=== PATIENT | female | born 1965 | race Caucasian/White ===

== ENCOUNTER 2021-03-18 08:43 | Emergency (ER) | payer SELFPAY ==
[~2021-03-18] VITALS: Ht 177.8 cm; Wt 59.0 kg
[~2021-03-18 08:43] MED LIST: HYDR1TAB94
[2021-03-18] MEDS ORDERED: VENL150ER PO ×2 (08:56→09:17)
[2021-03-18] MEDS ORDERED: GABA100 PO (08:57)
[2021-03-18] MEDS ORDERED: Neurontin 100100 MG PO (09:17)
[2021-03-18] MEDS ORDERED: VENL75ER PO (09:17)
== END 2021-03-18 11:10 | disposition home or self-care (01) ==
LOC: ER 08:43
DX: Z76.0 Encounter for issue of repeat prescription (principal); Z23 Encounter for immunization; Z88.2 Allergy status to sulfonamides; Z88.1 Allergy status to other antibiotic agents; Z79.899 Other long term (current) drug therapy
CPT/HCPCS: 0031A; 91303; 99281-25

== ENCOUNTER 2022-02-17 15:07 | Emergency (ER) | payer SELFPAY ==
[~2022-02-17] VITALS: Ht 177.8 cm; Wt 70.3 kg
[~2022-02-17 15:07] MED LIST changes: +GABA100 PO; +Neurontin 100100 MG PO; +VENL150ER PO; +VENL75ER PO
[2022-02-17 15:36] LABS: BASOPHILS ABSOLUTE AUTO 0.06 K/mm3 (0.00-0.23); BASOPHILS PERCENT AUTO 1 % (0-2); EOSINOPHILS ABSOLUTE AUTO 0.43 K/mm3 (0.00-0.68); EOSINOPHILS PERCENT AUTO 5 % (0-6); Hematocrit 40.5 % (33.0-51.0); IMMATURE GRAN ABSOLUTE AUTO 0.01 K/mm3 (0.00-0.10); IMMATURE GRAN PERCENT AUTO 0 % (0-1); LYMPHOCYTES ABSOLUTE AUTO 2.92 K/mm3 (0.84-5.20); LYMPHOCYTES PERCENT AUTO 34 % (21-46); MONOCYTES PERCENT AUTO 6 % (4-13); Mean Corpuscular HGB Conc 34.6 g/dL (31.5-36.5); Mean Corpuscular Volume 93 fL (80-100); Mean Platelet Volume 10.5 fL (9.1-12.4); NEUTROPHILS ABSOLUTE AUTO 4.56 K/mm3 (1.96-9.15); NEUTROPHILS PERCENT AUTO 54 % (41-73); Platelet Count 317 K/mm3 (150-400); RDW Coefficient Variation 12.2 % (11.7-14.2); RDW Standard Deviation 42.1 fL (35.1-46.3); Red Blood Cell Count 4.37 M/mm3 (3.80-5.20); White Blood Cell Count 8.48 K/mm3 (4.00-11.30)
[2022-02-17 15:57] LABS: Albumin, Blood 4.1 g/dL (3.4-5.0); Albumin/Globulin Ratio 1.2 (0.8-1.8); Bilirubin, Total 0.3 mg/dL (0.1-1.0); Bun/Creatinine Ratio 28.9 (12.0-20.0); Calcium, Blood 9.3 mg/dL (8.5-10.1); Creatinine, Blood 0.55 mg/dL (0.40-1.00); Globulin, Blood 3.5 g/dL (2.2-4.0); Potassium, Blood 3.9 mmol/L (3.5-5.5); Total Protein, Blood 7.6 g/dL (6.4-8.2)
[2022-02-17 16:31] LABS: Influenza A, PCR NEGATIVE (NEGATIVE); Influenza B, PCR NEGATIVE (NEGATIVE); Resp Syncytial Virus, PCR NEGATIVE (NEGATIVE); SARS-Cov-2 (COVID-19) PCR, MMC NEGATIVE (NEGATIVE)
[2022-02-17 16:52] LABS: Source, Urine Clean Catch
[2022-02-17 17:00] LABS: Appearance, Urine Clear (Clear); Bilirubin, Urine Neg (Neg); Blood, Urine 2+ (Neg); Color, Urine Yellow (P-Yellow); Glucose Qualitative, Urine Neg (Neg); Ketones, Urine Neg (Neg); Leukocyte Esterase, Urine 1+ (Neg); Nitrite, Urine Neg (Neg); Protein, Urine Neg (Neg); Specific Gravity, Urine 1.025 (1.003-1.022); Urobilinogen, Urine NORM (Normal)
[2022-02-17 17:17] LABS: Bacteria Mod /hpf; Squamous Epithelial Cells Few /hpf (Few)
[2022-02-17] MEDS ORDERED: HYDR1TAB94 PO (19:11)
== END 2022-02-17 19:44 | disposition home or self-care (01) ==
LOC: ER 15:07
PROVIDERS: Physician Assistant; Student in an Organized Health Care Education/Training Program
DX: R07.81 Pleurodynia (principal); R31.9 Hematuria, unspecified; F17.210 Nicotine dependence, cigarettes, uncomplicated; Z88.1 Allergy status to other antibiotic agents; Z88.2 Allergy status to sulfonamides; Z79.899 Other long term (current) drug therapy; Z20.822 Contact with and (suspected) exposure to COVID-19
CPT/HCPCS: 0241U; 36415; 71045; 74150; 80053; 81001; 83690; 84484; 85025; 85379; 93005; 93010; J1885

== ENCOUNTER → 2023-01-03 | Outpatient (CLI) | payer BC ==
[~2023-01-03] MED LIST changes: +HYDR1TAB94 PO
[2023-01-03 11:42] LABS: Adenovirus F 40/41 Not Detected (NOT DETECT); Astrovirus Not Detected (NOT DETECT); Campylobacter Sp Not Detected (NOT DETECT); Cryptosporidium Not Detected (NOT DETECT); Cyclospora Cayetanensis Not Detected (NOT DETECT); E. Coli O157 Not Detected (NOT DETECT); Entamoeba Histolytica Not Detected (NOT DETECT); Enteroaggregative E. coli-EAEC Not Detected (NOT DETECT); Enteropathogenic E. coli-EPEC Not Detected (NOT DETECT); Enterotoxigenic E. coli-ETEC Not Detected (NOT DETECT); Giardia Lamblia Not Detected (NOT DETECT); Norovirus GI/GII Not Detected (NOT DETECT); Plesiomonas Shigelloides Not Detected (NOT DETECT); Rotavirus A Not Detected (NOT DETECT); Salmonella Sp Not Detected (NOT DETECT); Sapovirus Not Detected (NOT DETECT); Shiga Toxin-prod E. coli-STEC Not Detected (NOT DETECT); Shigella/Enteroin E. coli-EIEC Not Detected (NOT DETECT); Vibrio Cholerae Not Detected (NOT DETECT); Vibrio Sp Not Detected (NOT DETECT); Yersinia Enterocolitica Not Detected (NOT DETECT)
== END | disposition home or self-care (01) ==
LOC: LAB 04:15 → LAB SHORT 04:15 → EDSTATUS 01-02 15:40 → LAB FUT 01-02 15:40
PROVIDERS: Family Medicine
DX: R19.7 Diarrhea, unspecified (principal)
CPT/HCPCS: 87507

== ENCOUNTER 2023-02-01 06:39 | Day surgery (SDC) | payer BC ==
[~2023-02-01] VITALS: Ht 177.8 cm; Wt 69.2 kg
[2023-02-01] MEDS ORDERED: BUSP5 (07:14)
[2023-02-01 09:27] VITALS: BP 130/88
--- NOTE | 2023-02-01 09:29 | NUR ---
[facility]23 [facility]
== END 2023-02-01 09:29 | disposition home or self-care (01) ==
LOC: ORSCSDS 06:39
PROVIDERS: Surgery
PROC: 0DBE8ZX Excision of Large Intestine, Via Natural or Artificial Opening Endoscopic, Diagnostic (ICD-10-PCS; principal; 2023-02-01 08:00)
PROC: 0DBK8ZX Excision of Ascending Colon, Via Natural or Artificial Opening Endoscopic, Diagnostic (ICD-10-PCS; principal; 2023-02-01 08:00)
PROC: 0DBM8ZX Excision of Descending Colon, Via Natural or Artificial Opening Endoscopic, Diagnostic (ICD-10-PCS; principal; 2023-02-01 08:00)
PROC: 0DBP8ZX Excision of Rectum, Via Natural or Artificial Opening Endoscopic, Diagnostic (ICD-10-PCS; principal; 2023-02-01 08:00)
DX: R19.4 Change in bowel habit (principal); R14.0 Abdominal distension (gaseous); R15.9 Full incontinence of feces; R15.2 Fecal urgency; K63.89 Other specified diseases of intestine; D12.2 Benign neoplasm of ascending colon; D12.4 Benign neoplasm of descending colon; K62.1 Rectal polyp; F17.210 Nicotine dependence, cigarettes, uncomplicated; Z79.899 Other long term (current) drug therapy
CPT/HCPCS: 88305; J2001; J2704; J7120

== ENCOUNTER 2023-03-29 06:01 | Day surgery (SDC) | payer BC ==
[2023-03-29] VITALS (16 sets, daily range): BP systolic 101–126; BP diastolic 56–91
[~2023-03-29] VITALS: Ht 175.3 cm; Wt 70.5 kg
[~2023-03-29 06:01] MED LIST changes: +BUSP5 PO
--- NOTE | 2023-03-29 07:05 | NUR ---
Ambulatory in Day Surgery. History, Chart, Medications and Allergies reviewed before start of procedure. Pre-Op teaching done. Pt verbalizes understanding. Patient confirms NPO status and agrees with scheduled surgery. Lungs clear T/O to Auscultation. Patient reports completing Chlorhexadine shower X2 prior to admission to hospital. Patient States Post-Procedure ride home has been arranged.
[2023-03-29 12:18] LABS: BASOPHILS ABSOLUTE AUTO 0.04 K/mm3 (0.00-0.23); BASOPHILS PERCENT AUTO 1 % (0-2); EOSINOPHILS ABSOLUTE AUTO 0.04 K/mm3 (0.00-0.68); EOSINOPHILS PERCENT AUTO 1 % (0-6); Hematocrit 39.8 % (33.0-51.0); Hemoglobin 13.3 g/dL (11.5-16.0); IMMATURE GRAN ABSOLUTE AUTO 0.02 K/mm3 (0.00-0.10); IMMATURE GRAN PERCENT AUTO 0 % (0-1); LYMPHOCYTES ABSOLUTE AUTO 0.71 K/mm3 (0.84-5.20); LYMPHOCYTES PERCENT AUTO 10 % (21-46); MONOCYTES ABSOLUTE AUTO 0.11 K/mm3 (0.16-1.47); MONOCYTES PERCENT AUTO 2 % (4-13); Mean Corpuscular HGB 31.8 pg (26.0-34.0); Mean Corpuscular HGB Conc 33.4 g/dL (31.5-36.5); Mean Corpuscular Volume 95 fL (80-100); NEUTROPHILS ABSOLUTE AUTO 6.54 K/mm3 (1.96-9.15); NEUTROPHILS PERCENT AUTO 88 % (41-73); Platelet Count 284 K/mm3 (150-400); RDW Coefficient Variation 12.5 % (11.7-14.2); RDW Standard Deviation 43.8 fL (35.1-46.3); Red Blood Cell Count 4.18 M/mm3 (3.80-5.20); White Blood Cell Count 7.46 K/mm3 (4.00-11.30)
[2023-03-29] MEDS ORDERED: IBUP800 PO (14:26)
[2023-03-29] MEDS ORDERED: Norco 5-325 Ta1 EACH PO (14:26)
--- NOTE | 2023-03-29 14:58 | NUR ---
DISCHARGE EATING, DRINKING, VOIDING EASILY. VAG PACKING REMOVED. PT's PAIN IS TOLERABLE. ESCORTED OUT IA WC. SCRIPT GIVEN.
== END 2023-03-29 14:57 | disposition home or self-care (01) ==
LOC: ORSCMMR 06:01 → ORD 08:00 → SURS 10:00 → ORSCMMR 14:57
PROVIDERS: Obstetrics & Gynecology
PROC: 0JQC0ZZ Repair Pelvic Region Subcutaneous Tissue and Fascia, Open Approach (ICD-10-PCS; principal; 2023-03-29 08:00)
DX: N81.2 Incomplete uterovaginal prolapse (principal); F41.9 Anxiety disorder, unspecified; F32.A Depression, unspecified; Z79.899 Other long term (current) drug therapy; Z87.891 Personal history of nicotine dependence
CPT/HCPCS: 36415; 85025; A9270; J1100; J1885; J2250; J2405; J2704; J3010; J7120

== ENCOUNTER 2023-06-18 17:59 | Emergency (ER) | payer BC ==
[~2023-06-18] VITALS: Ht 175.3 cm; Wt 68.0 kg
[~2023-06-18 17:59] MED LIST changes: +IBUP800 PO; +Norco 5-325 Ta1 EACH PO
[2023-06-18 18:24] VITALS: BP 138/94
[2023-06-18 19:20] LABS: Influenza A, PCR NEGATIVE (NEGATIVE); Influenza B, PCR NEGATIVE (NEGATIVE); Resp Syncytial Virus, PCR NEGATIVE (NEGATIVE); SARS-Cov-2 (COVID-19) PCR, MMC NEGATIVE (NEGATIVE)
== END 2023-06-18 22:02 | disposition home or self-care (01) ==
LOC: ER 17:59
PROVIDERS: Physician Assistant
DX: R50.9 Fever, unspecified (principal); F17.210 Nicotine dependence, cigarettes, uncomplicated; Z88.2 Allergy status to sulfonamides; Z88.1 Allergy status to other antibiotic agents; Z88.8 Allergy status to other drugs, medicaments and biological substances; Z79.899 Other long term (current) drug therapy; Z20.822 Contact with and (suspected) exposure to COVID-19
CPT/HCPCS: 0241U; 96372; 99283-25; A9270; J1885

== ENCOUNTER → 2023-06-20 | Outpatient (CLI) | payer BC | LOC: LAB 15:20 → LAB SHORT 15:20 | DX: R82.90 Unspecified abnormal findings in urine (principal) | CPT/HCPCS: 87086 ==

== ENCOUNTER 2024-02-15 12:40 | Day surgery (SDC) | payer BC ==
[~2024-02-15] VITALS: Ht 175.3 cm; Wt 71.9 kg
[~2024-02-15 12:40] MED LIST changes: +Atropine Sulfate 0.1 MG/ML 10ML SYR ONE; +Glycopyrrolate 0.2 MG/ML 1MLVIAL ONE; +Lactated Ringer's 1,000 ML IV ONE; +Lidocaine 2% 5 ML SDV ONE; +Lidocaine HCl/Pf 1% 5 ML VIAL ONE; +Methylene Blue 1% 100 MG/10 ML VIAL ONE; +Ondansetron HCl 2 MG / ML 2ML Vial ONE; +ePHEDrine Sulfate 50 MG/ML 1ML Injection ONE; +propofoL 50 ML IV ONE
[2024-02-15] MEDS ORDERED: Lactated Ringer's 1,000 ML IV ONE (14:18)
[2024-02-15 15:44] VITALS: BP 136/96
== END 2024-02-15 15:52 | disposition home or self-care (01) ==
LOC: ORSCSDS 12:40
DX: R13.10 Dysphagia, unspecified (principal); K29.70 Gastritis, unspecified, without bleeding; K21.9 Gastro-esophageal reflux disease without esophagitis; F41.9 Anxiety disorder, unspecified; Z79.899 Other long term (current) drug therapy; F17.210 Nicotine dependence, cigarettes, uncomplicated
CPT/HCPCS: 88305; 88342; J0461; J2001; J2405; J2704; J7120; Q9968

== ENCOUNTER 2024-04-25 17:45 | Emergency (ER) | payer BC ==
[~2024-04-25] VITALS: Ht 177.8 cm; Wt 72.6 kg
[~2024-04-25 17:45] MED LIST changes: -Atropine Sulfate 0.1 MG/ML 10ML SYR ONE; -Glycopyrrolate 0.2 MG/ML 1MLVIAL ONE; -Lactated Ringer's 1,000 ML IV ONE; -Lidocaine 2% 5 ML SDV ONE; -Lidocaine HCl/Pf 1% 5 ML VIAL ONE; -Methylene Blue 1% 100 MG/10 ML VIAL ONE; -Ondansetron HCl 2 MG / ML 2ML Vial ONE; -ePHEDrine Sulfate 50 MG/ML 1ML Injection ONE; -propofoL 50 ML IV ONE
[2024-04-25 18:20] LABS: BASOPHILS ABSOLUTE AUTO 0.05 K/mm3 (0.00-0.23); BASOPHILS PERCENT AUTO 1 % (0-2); EOSINOPHILS PERCENT AUTO 4 % (0-6); Hematocrit 37.7 % (33.0-51.0); Hemoglobin 13.1 g/dL (11.5-16.0); IMMATURE GRAN ABSOLUTE AUTO 0.01 K/mm3 (0.00-0.10); IMMATURE GRAN PERCENT AUTO 0 % (0-1); LYMPHOCYTES ABSOLUTE AUTO 2.84 K/mm3 (0.84-5.20); LYMPHOCYTES PERCENT AUTO 41 % (21-46); MONOCYTES ABSOLUTE AUTO 0.47 K/mm3 (0.16-1.47); MONOCYTES PERCENT AUTO 7 % (4-13); Mean Corpuscular HGB 32.4 pg (26.0-34.0); Mean Corpuscular HGB Conc 34.7 g/dL (31.5-36.5); Mean Corpuscular Volume 93 fL (80-100); Mean Platelet Volume 9.7 fL (9.1-12.4); NEUTROPHILS ABSOLUTE AUTO 3.24 K/mm3 (1.96-9.15); NEUTROPHILS PERCENT AUTO 47 % (41-73); Platelet Count 339 K/mm3 (150-400); RDW Coefficient Variation 12.5 % (11.7-14.2); RDW Standard Deviation 43.3 fL (35.1-46.3); Red Blood Cell Count 4.04 M/mm3 (3.80-5.20); White Blood Cell Count 6.91 K/mm3 (4.00-11.30)
[2024-04-25] MEDS ORDERED: LOSA50 PO (18:45)
[2024-04-25] MEDS ORDERED: CYCLOBENZAPRINE 5 MG (18:46)
[2024-04-25 18:48] LABS: Albumin, Blood 3.8 g/dL (3.4-5.0); Albumin/Globulin Ratio 1.2 (0.8-1.8); Bilirubin, Total 0.2 mg/dL (0.1-1.0); Bun/Creatinine Ratio 24.4 (12.0-20.0); Calcium, Blood 8.8 mg/dL (8.5-10.1); Creatinine, Blood 0.66 mg/dL (0.40-1.00); Globulin, Blood 3.3 g/dL (2.2-4.0); Potassium, Blood 3.6 mmol/L (3.5-5.5); Total Protein, Blood 7.1 g/dL (6.4-8.2)
[2024-04-25 21:27] VITALS: BP 161/96
== END 2024-04-25 21:28 | disposition home or self-care (01) ==
LOC: ER 17:45
PROVIDERS: Physician Assistant
DX: M54.42 Lumbago with sciatica, left side (principal); R32 Unspecified urinary incontinence; Z88.2 Allergy status to sulfonamides; Z88.8 Allergy status to other drugs, medicaments and biological substances; Z88.1 Allergy status to other antibiotic agents; Z79.899 Other long term (current) drug therapy; F17.210 Nicotine dependence, cigarettes, uncomplicated
CPT/HCPCS: 51798; 80053; 85025; 85651; 86140; 99283-25

== ENCOUNTER → 2024-07-21 | Outpatient (CLI) | payer BC ==
[~2024-07-21] MED LIST changes: +CYCLOBENZAPRINE 5 MG; +LOSA50 PO
[2024-07-28 14:13] LABS: HPV HIGH RISK BY TMA Not Detected; HPV SOURCE Cervical/Vag
== END ==
LOC: LAB SHORT 09:52 → LAB 09:52
PROVIDERS: Obstetrics & Gynecology
DX: Z01.419 Encounter for gynecological examination (general) (routine) without abnormal findings (principal)
CPT/HCPCS: 87624; G0123

== ENCOUNTER → 2025-03-19 | Outpatient (CLI) | payer BC | END | disposition home or self-care (01) | LOC: LAB 15:00 → LAB SHORT 03-20 07:52 → LAB 03-20 07:52 | DX: M54.50 Low back pain, unspecified (principal) | CPT/HCPCS: 87086 ==

== ENCOUNTER 2025-03-20 15:08 | Emergency (ER) | payer BC ==
[~2025-03-20] VITALS: Ht 177.8 cm; Wt 68.0 kg
[2025-03-20] MEDS ORDERED: Ketorolac Tromethamine 15mg Vial IV ONE (15:15)
[2025-03-20 15:27] LABS: Source, Urine Clean Catch
[2025-03-20 15:52] LABS: Bilirubin, Urine Neg (Neg); Color, Urine Yellow (P-Yellow); Glucose Qualitative, Urine Neg (Neg); Ketones, Urine Neg (Neg); Leukocyte Esterase, Urine Neg (Neg); Protein, Urine Neg (Neg); Specific Gravity, Urine 1.025 (1.003-1.022); Urobilinogen, Urine NORM (Normal)
[2025-03-20 15:59] LABS: BASOPHILS ABSOLUTE AUTO 0.04 K/mm3 (0.00-0.23); BASOPHILS PERCENT AUTO 1 % (0-2); EOSINOPHILS ABSOLUTE AUTO 0.25 K/mm3 (0.00-0.68); EOSINOPHILS PERCENT AUTO 3 % (0-6); Hematocrit 40.5 % (33.0-51.0); Hemoglobin 13.9 g/dL (11.5-16.0); IMMATURE GRAN ABSOLUTE AUTO 0.02 K/mm3 (0.00-0.10); IMMATURE GRAN PERCENT AUTO 0 % (0-1); LYMPHOCYTES ABSOLUTE AUTO 2.54 K/mm3 (0.84-5.20); LYMPHOCYTES PERCENT AUTO 31 % (21-46); MONOCYTES ABSOLUTE AUTO 0.58 K/mm3 (0.16-1.47); MONOCYTES PERCENT AUTO 7 % (4-13); Mean Corpuscular HGB Conc 34.3 g/dL (31.5-36.5); Mean Corpuscular Volume 93 fL (80-100); NEUTROPHILS ABSOLUTE AUTO 4.71 K/mm3 (1.96-9.15); NEUTROPHILS PERCENT AUTO 58 % (41-73); NRBC ABSOLUTE 0.00 K/mm3 (0.00-0.02); NRBC Auto 0.0 /100 WBC (0.0-0.2); Platelet Count 330 K/mm3 (150-400); RDW Coefficient Variation 12.5 % (11.7-14.2); RDW Standard Deviation 43.3 fL (35.1-46.3)
[2025-03-20 16:26] LABS: Alanine Aminotransfer (ALT/SGP 26.0 U/L (12-78); Albumin, Blood 3.9 g/dL (3.4-5.0); Albumin/Globulin Ratio 1.2 (0.8-1.8); Anion Gap 7.0 mmol/L (3-11); Aspartate Aminotrans (AST/SGOT 19.0 U/L (12-37); Bilirubin, Total 0.2 mg/dL (0.1-1.0); Blood Urea Nitrogen 19.0 mg/dL (8-24); CO2, Blood 24.0 mmol/L (21-32); Calcium, Blood 9.1 mg/dL (8.5-10.1); Chloride, Blood 109.0 mmol/L (98-108); Creatinine, Blood 0.55 mg/dL (0.40-1.00); Globulin, Blood 3.2 g/dL (2.2-4.0); Glucose, Blood 97.0 mg/dL (70-99); Potassium, Blood 3.8 mmol/L (3.5-5.5); Sodium, Blood 136.0 mmol/L (136-145); Total Protein, Blood 7.1 g/dL (6.4-8.2)
[2025-03-20 17:47] VITALS: BP 123/81
== END 2025-03-20 17:45 | disposition home or self-care (01) ==
LOC: ER 15:08
PROVIDERS: Emergency Medicine
DX: N20.0 Calculus of kidney (principal); F17.210 Nicotine dependence, cigarettes, uncomplicated; Z79.899 Other long term (current) drug therapy; Z88.2 Allergy status to sulfonamides; Z88.1 Allergy status to other antibiotic agents; Z88.8 Allergy status to other drugs, medicaments and biological substances
CPT/HCPCS: 74176; 80053; 81001; 85025; 96374; 99284-25; J1885